=== PATIENT | female | born 1990 | race Caucasian/White ===

== ENCOUNTER → 2020-06-15 08:33 | Outpatient (BNVA) | payer OTHER, SELFPAY | PROVIDERS: PCP Nurse Practitioner Family; Visit Provider Surgery ==

== ENCOUNTER → 2020-06-29 08:13 | Outpatient (BNVA) | payer OTHER, SELFPAY | PROVIDERS: PCP Nurse Practitioner Family; Visit Provider Surgery | DX: E66.01 Morbid (severe) obesity due to excess calories (principal); Z68.43 Body mass index [BMI] 50.0-59.9, adult | CPT/HCPCS: 99212 ==

== ENCOUNTER → 2020-07-13 08:22 | Outpatient (BNVA) | payer OTHER, SELFPAY | PROVIDERS: PCP Nurse Practitioner Family; Visit Provider Dietitian, Registered ==

== ENCOUNTER 2022-10-20 11:33 | Outpatient (REF) | payer MEDICAID, SELFPAY ==
[2022-10-20 14:55] LABS: Alanine Aminotransferase 72 U/L (0-31); Albumin Level 3.8 g/dL (3.5-5.0); Alkaline Phosphatase 73 U/L (39-117); Aspartate Amino Transferase 42 U/L (5-31); Bilirubin Direct 0.3 mg/dL (0.0-0.5); Bilirubin Total 0.8 mg/dL (0.0-1.0); Total Protein 7.5 g/dL (6.5-8.0)
[2022-10-21 04:01] LABS: HBS Num1 0.47 mIU/mL (0-7.99); ~Hepatitis B Surface Antibody NONREACTIVE (Nonreactive)
== END 2022-10-20 11:34 | disposition home or self-care (01) ==
LOC: HO.CHCLDS 11:33
PROVIDERS: Visit Provider Family Medicine
DX: E66.01 Morbid (severe) obesity due to excess calories (principal); R74.01 Elevation of levels of liver transaminase levels
CPT/HCPCS: 36415; 80076; 86706

== ENCOUNTER 2022-11-06 16:05 | Outpatient (REF) | payer MEDICAID, SELFPAY ==
[2022-11-07 03:23] LABS: CT PCR NOT DETECTED (Not Detect.); NG PCR NOT DETECTED (Not Detect.)
[2022-11-07 11:15] LABS: BV Int Neg Control Negative (Negative); BV Int Pos Control Positive (Positive)
== END 2022-11-06 16:06 | disposition home or self-care (01) ==
LOC: HO.CHCLNP 16:05
PROVIDERS: Visit Provider Family Medicine
DX: Z12.72 Encounter for screening for malignant neoplasm of vagina (principal); Z90.711 Acquired absence of uterus with remaining cervical stump
CPT/HCPCS: 0353U; 87480; 87510; 87660; 88142

== ENCOUNTER 2023-05-15 18:10 | Outpatient (REF) | payer MEDICAID, SELFPAY | END 2023-05-15 18:11 | disposition home or self-care (01) | LOC: HO.CHCLNP 18:10 | PROVIDERS: Visit Provider Registered Nurse | DX: J10.1 Influenza due to other identified influenza virus with other respiratory manifestations (principal) | CPT/HCPCS: 0241U; 87070 ==

== ENCOUNTER 2023-05-15 18:25 | Outpatient (REF) | payer MEDICAID, SELFPAY ==
[2023-05-15 19:09] LABS: Influenza A PCR NEGATIVE (Negative); Influenza B PCR POSITIVE (Negative); Resp Syncy Virus RNA Qual PCR NEGATIVE (Negative); SARS COV2 PCR INHOUSE NEGATIVE (Negative)
== END 2023-05-15 18:26 | disposition home or self-care (01) ==
LOC: HO.CHCLNP 18:25
PROVIDERS: Visit Provider Registered Nurse
DX: Z11.52 Encounter for screening for COVID-19 (principal); J10.1 Influenza due to other identified influenza virus with other respiratory manifestations
CPT/HCPCS: 0241U

== ENCOUNTER 2024-03-22 09:26 | Outpatient (REF) | payer MEDICAID, SELFPAY ==
--- OUTSIDE RECORDS SUMMARY | 2024-03-22 10:30 | XMS_ITS | Clinical Summary ---
Author Organization [facility] Address [address] [place] [address] Care Team Providers Care Coin Rolling Machine Operator Name Role Phone Unavailable Primary Care Provider Unavailabl e Source Comments PLEASE NOTE, if this patient is a minor, it may be UNLAWFUL to discuss sensitive information that is contained in these records (such as FAMILY PLANNING, MENTAL HEALTH or SUBSTANCE ABUSE) with the minor patient's parent or other person without the patient's specific authorization.[facility] Immunizations Name Administration Dates Next Due Moderna COVID-19 Vaccine, re d cap blue label, 12+ Primary Series 07/02/2020,06/04/2020 Social History Tobacco Use Types Packs/Day Years Used Date Smoking Tobacco: Never Assessed Social Connections Answer Date Recorded Social Connections and Isolation 0 06/04/2020 Financial Resource Strain Answer Date R ecorded Financial Resource Strain 0 2020 Stress Answer Date Recorded Stress 0 06/04/2020 Physical Activity Answer Date Recorded Physical Activity 0 06/04/2020 Food Insecurity Answer Date Recorded Food 0 06/04/2020 Transportation Needs Answer Date Record ed Transportation 0 06/04/2020 Housing Stability Answer Date Recorded Housing 0 06/04/2020 Safety and Environment Answer Date Cristo rded Safety 0 06/04/2020 Utilities Answer Date Recorded Utilities 0 06/04/2020 Employment Answer Date Recorded Employment 0 06/04/2020 Comments Unknown Sex and Gender Information Value Date Recorded Sex Assigned at Not on file Legal Sex Female 6:59 AM PDT Gender Identity Not on file Sexual Orientation Not on file Plan of Treatment Health Maintenance Due Date Last Done Comments Diabetes Screening 1989 HPV Screening 1989 Hepatitis C Screening 1989 Pap + HPV 1989 Tobacco Screening 1989 HIV Screening 01/05/2004 Relationship Safety Screening/Counseling 01/05/2004 Annual Preventive Care Visit 2007 Hypertension Screening (#1) 2007 Imm-DTaP/Tdap/Td (1 - Tdap) 01/05/2008 Imm-Hepatitis B (1 of 3 - 19 + 3-dose series) 01/05/2008 Cervical Cancer Screening 2010 Pap Smear 2010 Alcohol and Drug Screen 02/09/2023 Depression Annual Screen 02/09/2023 [id number] ( season) 2023 021, 06/04/2020 Imm-Influenza (#1) 2023 Cervical Ablation/Cold-Knife Conization Discontinued Cervical Cryotherapy Discontinued Colposcopy Discontinued Endometrial Biopsy Discontinued Excision/Leep Discontinued HPV Genotyping Discontinued Vaginal Pap Discontinued Vulvoscopy Discontinued Insurance [employer] Member Subscriber Plan / Payer (Ef fective 2019-Present) Name:Dilcia Vergara Relation to Subscriber:Self Name:Dilcia Vergara Payer ID:[id number] Group ID:Not on file Type:Medicaid Address: [facility] [address] [place] [address]
--- OUTSIDE RECORDS SUMMARY | 2024-03-22 10:30 | XMS_ITS | Clinical Summary ---
Author Organization [employer] Address [address] [facility] [address] [place] [address] Care Team Providers Care Insole Tacker Name Role Phone Alisha Miller MD Primary Care Provider [phone] Allergies Active Allergy Reactions Criticality Noted Date Comments Penicillins Itching Low 03/27/2022 Medications sertraline (Zoloft) 50 MG tablet Take 50 mg by mouth 2 times daily. Active Blood Pressure kitIndications:El evated blood pressure reading 1 kit in the morning. 1 kit 3 Active simethicone (Mylicon) 80 MG chewable tablet TAKE 1 TABLET BY MOUTH EVERY 6 HOURS NEEDED FOR FLATULENCE FOR UP TO 30 DAYS. 4 Active ursodiol (Actigall) 300 MG capsule TAKE 2 CAPSULES BY MOUTH DAILY FOR 180 DAYS. 4 Active albuterol 108 (90 Base) MCG/ACT inhalerIndication s:Influenza B,Moderate persistent asthma without complication Inhale 2 puffs every 4 (four) hours if needed for wheezing. 18 g 11 4 05/15/19 25 Active Acetaminophen Extra Strength 500 MG tabletIndications :Influenza B TAKE 1-2 TABLETS BY MOUTH EVERY 8 HOURS as needed for pain or fever 100 tablet 3 4 Active omeprazole (PriLOSEC) [address] capsule TAKE 1 CAPSULE BY MOUTH BEFORE BREAKFAST 90 capsule 4 Active polyethylene glycol, PEG, 3350 (MiraLax) 17 GM/SCOOP powderIndications :Constipation, unspecified constipation type Take 17 g by mouth Once per day. 527 g 2 4 Active senna-docusate sodium (Senokot-S) 8.6-50 MG tabletIndications :Constipation, unspecified constipation type Take 2 tablets by mouth Once per day. 60 tablet 11 4 Active pramoxine-hydroco rtisone, perianal, (Analpram HC) 2.5-1 % cream Insert into the rectum if needed in the morning and at bedtime for hemorrhoids. 30 g 4 Active Active Problems Problem Noted Date Diagnosed Date Constipation 01/25/2024 Assessment & Plan (01/25/2024 3:54 PM EST): Prescribing Miralax, Senokot, and Milk of Magnesia for Sx. Follow up in one month via telehealth. Grade I hemorrhoids 12/28/2023 Assessment & Plan (12/28/2023 4:06 PM EST): Hb is normal, not a significant bleeding. Advised to avoid constipation, increase water intake. Advised to buy OTC sitz baths to do tid or prn after BM Advised to use IR Hydrocortisone cream tid or prn after BM FU with PCP in 3-4w Advised to use non alcohol wipes prn rectal bleeding and apply pressure for at least 10 min. Can use OTC zinc oxide cream on perineal area to prevent irritation from rectal bleeding. Exercise counseling 10/20/2022 Moderate persistent asthma without complication 07/21/2022 Assessment & Plan (07/21/2022 1:31 PM EDT): Patient with recent asthma exacerbation. Will send Advair 150 and inhaler and start on x5 day trial of prednisone. Transaminitis 06/06/2022 Assessment & Plan (10/20/2022 11:17 AM EDT): Patient will be send for labs for further evaluation. Assessment & Plan (06/06/2022 3:41 PM EDT): Pending US, will recheck labs in 3 months if persistent will refer to GI. Initial w/u benign. Hypertension 05/02/2022 Assessment & Plan (06/06/2022 3:41 PM EDT): Controlled. Continue current dose. Assessment & Plan (05/28/2022 2:40 PM EDT): Uncontrolled. Adjusted regimen. F/up in 1 month. Target < 140/90 mmHg Palpitations 04/17/2022 Peripheral neuropathy 04/09/2022 Assessment & Plan (10/20/2022 5:01 PM EDT): Ddx carpel tunnel, pending EMG, unclear why hand surgery referral was not placed previously, sent. Reorder OT. Assessment & Plan (04/09/2022 5:23 PM EST): Bilateral hand pain especially with grasping and at night, ddx carpel tunnel, send for EMG and hand surgeon Depression 03/27/2022 Anxiety 03/27/2022 Morbid obesity 03/27/2022 Assessment & Plan (04/16/2023 10:23 AM EST): Sp gastric sleeve. Doing well. Discussed postop recommendations. Cont f/up with bariatric center. Discussed calorie deficit, recommended reduction of 20-30% of maintenance calories. Recommended to decrease soda and sugary beverage consumption. Recommended at least 20 g per meal of protein to assist with satiety. Recommended at least 150 min/week of moderate intensity exercise. Assessment & Plan (11/06/2022 3:32 PM EDT): Discussed calorie deficit, recommended reduction of 20-30% of maintenance calories; emd special education teacher referral offered. Recommended to decrease soda and sugary beverage consumption. Recommended at least 20 g per meal of protein to assist with satiety. Recommended at least 150 min/week of moderate intensity exercise. Assessment & Plan (10/20/2022 5:00 PM EDT): -Discussed calorie deficit, recommended reduction of 20-30% of maintenance calories -Recommended to decrease soda and sugary beverage consumption. Recommended at least 20 g per meal of protein to assist with satiety. Recommended at least 150 min/week of moderate intensity exercise. She has pending bariatric surgery, she is not taking phen/topamax Assessment & Plan (07/21/2022 1:36 PM EDT): Patient gained 3 lbs since last visit. Denies implementation of diet modifications. Will refer to emd special education teacher. At this point will increase phentermine to 37.5 mg and Topamax to 100 mg nighty. Assessment & Plan (06/06/2022 3:41 PM EDT): Patient will benefit of pharmacotherapy, reports she has tried to change lifestyle but has gained weight. Will start phentermine, patient already on topamax for SANCHEZ ppx. Phentermine/topamax: 8/50 mg. Discussed side effects-> tachycardia, HTN, teratogenic, cognitive dysfuction, metabolic acidosis, constipation, dysgeusia. Denies hx of , hyperthyroidism, MAOI use or glaucoma. Denies hx of kidney stones. F/u in 1 month to assess responsive and side effects Assessment & Plan (04/09/2022 5:25 PM EST): Discussed calorie deficit, recommended reduction of 20-30% of maintenance calories; following w/ bariatric medicine. Recommended to decrease soda and sugary beverage consumption. Recommended at least 20 g per meal of protein to assist with satiety. Recommended at least 150 min/week of moderate intensity exercise. Resolved Problems Problem Noted Date Diagnosed Date Resolved Date Elevated blood pressure reading 04/09/2022 05/16/2023 Assessment & Plan (04/09/2022 5:25 PM EST): Elevated blood pressure w/o dx of HTN. Recommended monitoring and will f/up Encounters Date Type Department Care Team Description 03/21/2024 5:40 PM EST Office Visit [facility] [address] [place], [place] [phone] Abilio Iraheta MD Other fatigue (Primary Dx) 03/21/2024 Travel 03/01/2024 Telephone [facility] [address] [place], [place] [phone] Alisha Miller MD PCP Change 02/05/2024 2:20 PM EST Office Visit [facility] [address] [place] [phone] Brisa Bray MD Viral upper respiratory tract infection (Primary Dx); Sore throat 01/25/2024 3:30 PM EST Office Visit [facility] [address] [place] [address] Alisha Miller MD Constipation, unspecified constipation type (Primary Dx); Encounter for immunization 01/25/2024 Travel 12/29/2023 Refill [facility] [address] [place] [address] Alisha Miller MD 12/28/2023 3:40 PM EST Office Visit [facility] [address] [place] [phone] Melba Bellamy MD Grade I hemorrhoids (Primary Dx) 12/28/2023 Telephone [facility] [address] [place] [phone] Alisha Miller MD Nurse Triage from Last 3 Months Immunizations Name Administration Dates Next Due Influenza injectable quadrivalent preservative f ree 10/20/2022 Influenza, seasonal, injectable, preservative fr ee 01/25/2024 Pneumococcal Conjugate PCV 20 10/20/2022 Tdap 10/20/2022 Social History Tobacco Use Types Packs/Day Years Used Date Smoking Tobacco: Never Passive Smoke Exposure: Never Smokeless Tobacco: Never Tobacco Cessation:Counseling Given: Not Answered Alcohol Use Standard Drinks/Week Comments Never 0 (1 standard drink = 0.6 oz pur e alcohol) Depression Answer Date Recorded Patient Health Questionnaire-9 Score 10/20/2022 Housing Stability Answer Date Recorded What is your housing situation today? I have [place] 12/03/[address] you li ve. Do you have problems with any of the following? None of the above 12/03/2022 Food Insecurity Answer Date Recorded Within the past 12 months, y ou worried that your food would run out before you got money to buy more: Never True 12/03/2022 Within the past 12 months,th e food you bought just didn't last and you didn't have enough money to get more: Never True Transportation Answer Date Recorded In the past 12 months, has l ack of transportation kept you from medical appts, meetings, work or from getting things needed for daily living? No 12/03/2022 Utilities Answer Date Recorded In the past 12 months, has t he electric, gas, oil or water company threatened to shut off services in your home? No 12/03/2022 Depression Answer Date Recorded Patient Health Questionnaire-2 Score 4 10/20/2022 Comments Unknown Sex and Gender Information Value Date Recorded Sex Assigned at Female 03/04/2022 1:14 PM EST Legal Sex Female 1:11 PM EST Gender Identity Female 03/04/2022 1:14 PM EST Sexual Orientation Straight 03/27/2022 12 :41 PM EST Last Filed Vital Signs Vital Sign Reading Time Taken Comments Blood Pressure 118/72 03/21/2024 5:39 PM EST Pulse 72 03/21/2024 5:39 PM EST Temperature 36.8 ??C (98.2 ??F) 03/21/2024 5:39 PM ES T Respiratory Rate 19 03/21/2024 5:39 PM EST Oxygen Saturation 98% 02/05/2024 1:49 PM EST Inhaled Oxygen Concentration - - Weight 116 kg (256 lb 6.4 oz) 03/21/2024 5:39 PM EST Height 167.6 cm (5' 6 ) 02/05/2024 1:49 PM EST Body Mass Index 41.38 02/05/2024 1:49 PM EST Plan of Treatment Health Maintenance Due Date Last Done Comments Alcohol/Substance Use Screening 2001 Family Planning (PISQ) 01/05/2004 Hepatitis B Vaccines (1 of 3 - 19+ 3-dose series) 01/05/2008 HPV/Cotest 2019 SDOH Screening 04/18/2023 04/17/2022 Depression Monitoring (PHQ-9) 04/20/2023, 10/20/2022 COVID-19 Vaccine (2023-2 5 season) 2023 Depression Screening 10/21/2023 10/20/2022, 10/20/2022 Tobacco Screening 02/04/2025 02/05/2024 Cervical Cancer Screening 11/06/2025 Pap Smear 11/06/2025 11/06/2022 Lipid Panel 04/07/2027 04/07/2022 DTaP/Tdap/Td Vaccines (2 - T d or Tdap) 10/20/2032 10/20/2022 Zoster Vaccines (1 of 2) 2039 RSV Patients and Patients Aged 60 years or older (1 - 1-dose 75+ series) 01/05/2064 HIV Screening Completed 05/29/2022 Hepatitis C Screening Completed 05/29/2022 Pneumococcal Vaccine: Pediatrics (0 to 5 Years) and At-Risk Patients (6 to 49) Years) Completed 10/20/2022 Influenza Vaccine Completed 01/25/2024, 10/20/2022 HIB Vaccines Aged Out No longer eligi ble based on patient's age to complete this topic HPV Vaccines Aged Out No longer eligi ble based on patient's age to complete this topic Hepatitis A Vaccines Aged Out No long er eligible based on patient's age to complete this topic IPV Vaccines Aged Out No longer eligi ble based on patient's age to complete this topic Meningococcal Vaccine Aged Out No bradley marbella eligible based on patient's age to complete this topic RSV under 20 months Aged Out No longe r eligible based on patient's age to complete this topic Rotavirus Vaccines Aged Out No longer eligible based on patient's age to complete this topic Procedures Procedure Name Priority Date/Time Associated Diagnosis Comments POC PÉREZ ID NOW STREP A Routine 02/05/2024 2:01 PM EST Sore throat POCT INFLUENZA A (ID NOW RAPID MOLECULAR) Routine 02/05/2024 2:00 PM EST Sore throat POCT COVID-19 AG PÉREZ ID NOW Routine 02/05/2024 1:59 PM EST Sore throat POCT INFLUENZA B (ID NOW RAPID MOLECULAR) Routine 02/05/2024 1:59 PM EST Sore throat POCT HEMOGLOBIN Routine 12/28/2023 3:50 PM EST Grade I hemorrhoids PAP SMEAR Routine 11/06/2022 3:20 PM EDT Screening for malignant neoplasm of vagina after partial hysterectomy HEPATITIS C AB W/REFL TO HCV RNA, QN, PCR Routine 05/29/2022 11:23 AM EDT Transaminitis HIV 1/2 ANTIGEN/ANTIBODY, FOURTH GENERATION W/RFL Routine 05/29/2022 11:23 AM EDT Transaminitis LIPID PANEL, STANDARD Routine 04/07/2022 11:14 AM EST from Last 3 Months or Most Recently Relevant to Health Maintenance Results * POCT Rapid Strep A PÉREZ ID NOW (02/05/2024 2:01 PM EST) [facility] Rapid Strep A Screen Negative Negative, None Detected QC Media Lot # [id number] Lot# Expiration Date Swab 02/05/2024 2:01 PM EST Brisa Bray MD POINT OF CARE TEST ENTER/EDIT ORDERABLES Final Result * POCT Rapid Influenza A PÉREZ ID NOW (02/05/2024 2:00 PM EST) [facility] Influenza A Negative Negative, Indeterminate [facility] QC Media Lot # [id number] [facility] Lot# Expiration Date [facility] Swab 02/05/2024 2:00 PM EST Brisa Bray MD POINT OF CARE TEST ENTER/EDIT ORDERABLES Final Result [facility] [address] [place] [phone] * POCT Rapid Influenza B PÉREZ ID NOW (02/05/2024 1:59 PM EST) [facility] Influenza B Negative Negative, Indeterminate [facility] QC Media Lot # [id number] [facility] Lot# Expiration Date [facility] Swab 02/05/2024 1:59 PM EST Brisa Bray MD POINT OF CARE TEST ENTER/EDIT ORDERABLES Final Result [facility] [address] [place] [phone] * POCT Rapid Covid-19 PÉREZ ID NOW (02/05/2024 1:59 PM EST) Pathologist [facility] Coronavirus Antigen PCR Negative Negative, Indeterminate, None Detected, Invalid, Specimen unsatisfactory for evaluation, Weakly Positive QC Media Lot # [id number] Lot# Expiration Date [id number] Swab 02/05/2024 1:59 PM EST Brisa Bray MD POINT OF CARE TEST ENTER/EDIT ORDERABLES Final Result * POCT hemoglobin docked device (12/28/2023 3:50 PM EST) Pathologist [facility] Hemoglobin 14.3 12.0 - 15.0 Blood 12/28/2023 3:50 PM EST Melba Bellamy MD POINT OF CARE TEST ENTER /EDIT ORDERABLES Final Result * Pap Smear (11/06/2022 3:20 PM EDT) Swab 11/06/2022 3:20 PM EDT 11/07/2022 10:10 AM EDT Narrative [facility] - 11/14/2022 11:16 AM EDT ----- ------- Name: Dilcia Sutton ? Age/Sex: 32/F ? : 1990 Unit#: [id number] ?? Attend Dr: Alisha Miller MD ?Re11/06/22 ?Status: DEP REF ? Location: [facility] ? Disch: ? ----- ------- SPEC : [id number] ?RECD: 11/07/22-1010 ? STATUS: ??SOUT ? REQ NUM: [id number] ? SHEFALI: 11/06/22-1520 ? SUBM DR: Alisha Miller MD ? ENTERED: ??11/07/22-1053 ?SP TYPE: Pap Smr ?OTHR DR: ? ORDERED: ??Pap Smear ? Interpretation ?? Satisfactory for evaluation. ?? Negative for intraepithelial lesion or malignancy. ?Clinical Information LMP: Unknown date Previous PAP test: Unknown date/findings Other history: Hysterectomy, screening for malignant neoplasm of vagina after partial hysterectomy ? Material Received ?? ThinPrep-Vaginal ----- ------- Signed (signature on file) SHABBIR Chaudhry ([facility]) 11/14/22 1116 ? ----- ------- ? END OF REPORT ? us Alisha Miller MD LAB CYTOLOGY ORDERABLES Final Result [facility] [address] [place] [phone] * Hepatitis C Antibody with Reflex to HCV, RNA, Quantitative, Real-Time PCR (05/29/2022 11:23 AM EDT) Hepatitis C Antibody NON-REACT SIMÓN NON-REACT SIMÓN [facility] [place] Index 0.19 <1.00 [facility] [place] [facility] Comment: HCV antibody was non-reactive. There is no laboratory evidence of HCV infection. In most cases, no further action is required. However, if recent HCV exposure is suspected, a test for HCV RNA (test code 54929) is suggested. For additional information please refer to http://MegaBits.Boticca/faq/JRQ10x2 (This link is being provided for informational/ educational purposes only.) Blood Venous blood specimen / Unknown 05/29/2022 11:23 AM EDT 05/29/2022 11:24 AM EDT Narrative [facility] - 05/29/2022 8:02 PM EDT AN UPDATE OR CORRECTION HAS BEEN MADE TO NAME us Alisha Miller MD LAB BLOOD ORDERABLES Final Re sult [facility] [address], [place] [address] [facility] [address] [place] [address] * HIV-1/2 Antigen and Antibodies, Fourth Generation, with Reflexes (05/29/2022 11:23 AM EDT) [facility] HIV Antigen/Antibody, 4th Generation NON-REAC TIVE NON-REAC TIVE [facility] Comment: HIV-1 antigen and HIV-1/HIV-2 antibodies were not detected. There is no laboratory evidence of HIV infection. PLEASE NOTE: This information has been disclosed to you from records whose confidentiality may be protected by state law. ??If your state requires such protection, then the state law prohibits you from making any further disclosure of the information without the specific written consent of the person to whom it pertains, or as otherwise permitted by law. A general authorization for the release of medical or other information is NOT sufficient for this purpose. ?? For additional information please refer to http://MegaBits.Boticca/faq/SBI829 (This link is being provided for informational/ educational purposes only.) The performance of this assay has not been clinically validated in patients less than 2 years old. Blood Venous blood specimen / Unknown 05/29/2022 11:23 AM EDT 05/29/2022 11:24 AM EDT Narrative [facility] - 05/29/2022 8:02 PM EDT AN UPDATE OR CORRECTION HAS BEEN MADE TO NAME Alisha Miller MD LAB BLOOD ORDERABLES Final Re sult Performing Organization Address [facility] de Phone Number [facility] [address] [phone] [facility] [address] [place] [address] * Lipid Panel, Standard (04/07/2022 11:14 AM EST) Cholesterol, Total 158 <200 mg/dL [facility] [place] [facility] HDL Cholesterol 56 > OR = 50 mg/dL [facility] [place] [facility] Triglycerides 98 <150 mg/dL [facility] [place] [facility] LDL Cholesterol 83 mg/dL (calc) [facility] [place] [facility] Comment: Reference range: <100 Desirable range <100 mg/dL for primary prevention; ?? <70 mg/dL for patients with CHD or diabetic patients with > or = 2 CHD risk factors. LDL-C is now calculated using the Rich-Davis calculation, which is a validated novel method providing better accuracy than the Friedewald equation in the estimation of LDL-C. Rich SS et al. ENOCH. 2013;310(19): 5387-2750 (http://education.ForwardMetrics/faq/YAQ948) Chol/HDLC Ratio 2.8 <5.0 (calc) [facility] [place] [facility] Non-HDL Cholesterol 102 <130 mg/dL (calc) [facility] [place] [facility] Comment: For patients with diabetes plus 1 major ASCVD risk factor, treating to a non-HDL-C goal of <100 mg/dL (LDL-C of <70 mg/dL) is considered a therapeutic option. 04/07/2022 11:1 4 AM EST 04/07/2022 11:16 AM EST Narrative [facility] - 04/11/2022 12:46 AM EST FASTING:YES AN UPDATE OR CORRECTION HAS BEEN MADE TO NAME FASTING: YES Alisha Miller MD LAB BLOOD ORDERABLES Final Re sult Performing Organization Address [facility] Co de Phone Number [facility] [address], [facility] [place] [address] [facility] [address] [facility], ([address]) [place] [address] from Last 3 Months or Most Recently Relevant to Health Maintenance [place] [address] [place] [address] C3 Care Teams Insole Tacker Relationship Specialty Start Date End Date Alisha Miller MD [address] [place] [address] PCP - General Family Medicine 03/27/22 Pedro Luis Montiel Gas Pipe LayerTransport Coordinator 10/23/22
--- OUTSIDE RECORDS SUMMARY | 2024-03-22 10:30 | XMS_ITS | Encounter Summary ---
Author Organization [employer] Address [address] [place] [address] Care Team Providers Care Assistant Paralegal Name Role Phone Alisha Miller MD Primary Care Provider [phone] Encounter Details Date Type Department Care Team ([facility] st Contact Info) Description 03/21/2024 5:40 PM EST Office Visit [facility] [address] [place] [address] Abilio Iraheta MD [address] [place] [address] Other fatigue (Primary Dx) Social History Tobacco Use Types Packs/Day Years Used Date Smoking Tobacco: Never Passive Smoke Exposure: Never Smokeless Tobacco: Never Alcohol Use Standard Drinks/Week Comments Never 0 (1 standard drink = 0.6 oz pur e alcohol) Depression Answer Date Recorded Patient Health Questionnaire-9 Score 20 10/20/2022 Housing Stability Answer Date Recorded What is your housing situation today? I have hamilton brownlee 12/03/[address] you [...] Orientation Straight 03/27/2022 12 :41 PM EST documented as of this encounter Last Filed Vital Signs Vital Sign Reading Time Taken Comments Blood Pressure 118/72 03/21/2024 5:39 PM EST Pulse 72 03/21/2024 5:39 PM EST Temperature 36.8 ??C (98.2 ??F) 03/21/2024 5:39 PM ES T Respiratory Rate 19 03/21/2024 5:39 PM EST Oxygen Saturation - - Inhaled Oxygen Concentration - - Weight 116 kg (256 lb 6.4 oz) 03/21/2024 5:39 P M EST Height - - Body Mass Index 41.38 02/05/2024 1:49 PM EST documented in this encounter Progress Notes * Abilio Lee MD - 03/21/2024 5:40 PM EST Subjective Patient ID: Dilcia Gallo is a 34 y.o. female who presents for No chief complaint on file.. Fatigue This is a chronic problem. Associated symptoms include arthralgias, fatigue and myalgias. Pertinentnegatives include no coughing or rash. Review of Systems Constitutional: Positive for fatigue. Respiratory: Negative for cough. Musculoskeletal: Positive for arthralgias and myalgias. Skin: Negative for rash. Objective Physical Exam Constitutional: Appearance: Normal appearance. Cardiovascular: Rate and Rhythm: Normal rate. Heart sounds: No murmur heard. Pulmonary: Effort: Pulmonary effort is normal. No respiratory distress. Breath sounds: No stridor. No wheezing or rhonchi. Abdominal: General: Abdomen is flat. There is no distension. Tenderness: There is no abdominal tenderness. There is no rebound. Musculoskeletal: General: No swelling, tenderness, deformity or signs of injury. Normal range of motion. Neurological: General: No focal deficit present. Mental Status: She is alert and oriented to person, place, and time. Psychiatric: Mood and Affect: Mood normal. Behavior: Behavior normal. Assessment/Plan Problem List Items Addressed This Visit None Visit Diagnoses Other fatigue - Primary Patient with chronic fatigue, multiple tender points, refers having joint swelling, unremarkable examination except for tender points, will order blood test to evaluate for autoimmune causes. Relevant Orders Comprehensive Metabolic Panel Hemoglobin A1c OBEY Screen,IFA, with Reflex to Titer and Pattern Cyclic Citrullinated Peptide (CCP) Antibody (IgG) C-reactive Protein Sed Rate by Nena Chase documented in this encounter Plan of Treatment Scheduled Orders Name Type Priority Associated Diagnoses Orde r Schedule Comprehensive Metabolic Panel Lab Routine Other fatigue Expected: 03/21/2024 (Approximate), Expires: 03/21/2025 Hemoglobin A1c Lab Routine Other fatigue Expected: 03/21/2024 (Approximate), Expires: 03/21/2025 OBEY Screen,IFA, with Reflex to Titer and Pattern Lab Routine Other fatigue Expected: 03/21/2024 (Approximate), Expires: 03/21/2025 Cyclic Citrullinated Peptide (CCP) Antibody (IgG) Lab Routine Other fatigue Expected: 03/21/2024 (Approximate), Expires: 03/21/2025 C-reactive Protein Lab Routine Other fatigue Expected: 03/21/2024 (Approximate), Expires: 03/21/2025 Sed Rate by Modified Westergren Lab Routine Other fatigue Expected: 03/21/2024, Expires: 03/21/2025 documented as of this encounter Visit Diagnoses Diagnosis Other fatigue- Primary documented in this encounter Additional Health Concerns Assessment Noted Time PHQ-9 Depression Total Score: 20 023 10:55 AM EDT documented as of this encounter Care Teams Assistant Paralegal Relationship Specialty Start Date End Date Alisha Mliler MD [address] [place] [id number] PCP - General Family Medicine 03/27/22 Pedro Luis Montiel Php Web DeveloperMeterman 10/23/22 documented as of this encounter
--- OUTSIDE RECORDS SUMMARY | 2024-03-22 10:30 | XMS_ITS | Clinical Summary ---
Author Organization [facility] [employer] [facility] Address [address] [place] [address] Care Team Providers Care Rotary Lithographic Press Operator Name Role Phone Alisha Miller MD Primary Care Provider [phone] Allergies Active Allergy Reactions Criticality Noted Date Comments Penicillin G Itching,Swelling 02/19/2018 Medications sertraline HCl (SERTRALINE ORAL) Take by mouth. Active trazodone HCl (TRAZODONE ORAL) Take by mouth. Active wheat dextrin (Benefiber Clear SF, dextrin,) 3 gram/3.5 gram powder in packet Take 4 g by mouth daily. 03/25/2023 Active Active Problems Problem Noted Date Diagnosed Date Class 3 severe obesity due t o excess calories with body mass index (BMI) of 50.0 to 59.9 in adult 02/08/2024 Surgical History Surgery Date Site/Laterality Comments CHOLECYSTECTOMY PROCEDURE: HI CHOLECYSTECTOMY APPENDECTOMY PROCEDURE: HISTORICAL APPENDECTOMY TUBAL LIGATION PROCEDURE: HISTORICAL TUBAL LIGATION SECTION PROCEDURE: HISTORICAL DELIVERY Medical History Medical History Date Comments Thyroid disease DX:Thyroid disea se Family History Medical History Relation Name Comments Diabetes Father Other: Other Father Hypertension Mother Thyroid disease Mother Relation Name Status Comments Father Alive Mother Alive Social History Tobacco Use Types Packs/Day Years Used Date Smoking Tobacco: Never Smokeless Tobacco: Never Alcohol Use Standard Drinks/Week Comments Yes 0 (1 standard drink = 0.6 oz pur e alcohol) Comments Unknown Sex and Gender Information Value Date Recorded Sex Assigned at Female 05/15/2023 7:04 PM EDT Legal Sex Female 6:51 PM EST Gender Identity Female 05/15/2023 7:04 PM EDT Sexual Orientation Straight 05/15/2023 7: 04 PM EDT Obstetrics History Last Filed Vital Signs Vital Sign Reading Time Taken Comments Blood Pressure 131/83 04/16/2023 8:54 AM EST Pulse 97 04/16/2023 8:54 AM EST Temperature - - Respiratory Rate - - Oxygen Saturation - - Inhaled Oxygen Concentration - - Weight 161 kg (356 lb) 05/14/2023 12:49 PM EDT Height 167.6 cm (5' 6 ) 04/16/2023 8:54 AM EST Body Mass Index 57.46 04/16/2023 8:54 AM EST Plan of Treatment Upcoming Encounters Date Type Department Care Team (Late st Contact Info) Description 04/12/2024 10:30 AM EST Office Visit Orthopedic Surgery - [place] [address] [facility] [address] [place] [phone] Emilee Ellison MD [address] [facility] [address] [place] [phone] 05/10/2024 1:15 PM EDT Office Visit Bariatric Surgery - [place] [address] [facility] [address] [place] [phone] Georgia Fairchild MD 175 [facility] [address] [place], [place] [phone] Health Maintenance Due Date Last Done Comments DTaP,Tdap,and Td Vaccines (1 - Tdap) 01/05/1996 Hepatitis B Vaccines (1 of 3 - 19+ 3-dose series) 01/05/2008 Cervical Cancer Screening: P ap Smear 2010 Depression Screening 01/11/2022 HIV Screening 01/11/2022 Hepatitis C Screening 01/11/2022 Social Influencers of Health Screening 01/11/2022 COVID-19 Vaccine (1 - 2023-2 5 season) 2023 Influenza Vaccine (#1) 2023 Cholesterol Screening (Lipid Panel) 10/30/2027 10/29/2022 HIB Vaccines Aged Out No longer eligi [...] on patient's age to complete this topic MMR Vaccines Aged Out No longer eligi ble based on patient's age to complete this topic Meningococcal ACWY Vaccine Aged Out N o longer eligible based on patient's age to complete this topic Meningococcal B Vacine Aged Out No lo nger eligible based on patient's age to complete this topic Pneumococcal Vaccine: Pediat rics (0 to 5 Years) and At-Risk Patients (6 to 64 Years) Aged Out No longer eligi ble based on patient's age to complete this topic RSV Immunization Patients Un bianka 20 months Aged Out No longer eligible b ased on patient's age to complete this topic Varicella Vaccines Aged Out No longer eligible based on patient's age to complete this topic Procedures Procedure Name Priority Date/Time Associated Diagnosis Comments LIPID PANEL Routine 10/29/2022 from Last 3 Months or Most Recently Relevant to Health Maintenance Results * Lipid panel (10/29/2022) LDL/HDL Ratio 3 0 - 4 Triglycerides 96 0 - 150 mg/dL Cholesterol 148 0 - 200 mg/dL HDL 47 >=40 mg/dL LDL Cholesterol 82 0 - 100 mg/dL Blood Venous blood specimen / Unknown [facility] Provider LAB BLOOD ORDERABLES Anne l Result from Last 3 Months or Most Recently Relevant to Health Maintenance Insurance MEDICA[place] Care Teams Rotary Lithographic Press Operator Relationship Specialty Start Date End Date Alisha Miller MD [address] [place] [phone] PCP - General 03/05/22
--- OUTSIDE RECORDS SUMMARY | 2024-03-22 10:30 | XMS_ITS | Encounter Summary ---
Author Organization [employer] Address [address] [place] [address] Care Team Providers Care Mergers And Acquisitions Banker Name Role Phone Alisha Miller MD Primary Care Provider [phone] Reason for Visit * Reason Onset Date Comments PCP Change 03/01/2024 Encounter Details Date Type Department Care Team ([facility] st Contact Info) Description 03/01/2024 Telephone [facility] [address] [place], [place] [phone] Alisha Miller MD [address] [place] [address] PCP Change Social History Tobacco Use Types Packs/Day Years [...] PM EST documented as of this encounter Miscellaneous Notes * Telephone Encounter - Mau Hartman - 03/21/2024 9:42 AM EST Tc from pt returning call. * Telephone Encounter - Odalis Flores RN - 03/04/2024 2:37 PM EST TC to pt- Sultana was master control technician- no answer. LM to RC. * Telephone Encounter - Kathy Roman - 03/01/2024 11:42 AM EST Tc from pt requesting to switch providers. Pt expressed not satisfied with care. Pt stated she has been requesting further testing regarding symptoms discussed in the past 2 years Contact pt at [phone] (german) documented in this encounter Plan of Treatment Not on file documented as of this encounter Visit Diagnoses Not on filedocumented in this encounter Additional Health Concerns Assessment Noted Time PHQ-9 Depression Total Score: 20 023 10:55 AM EDT documented as of this encounter Care Teams Mergers And Acquisitions Banker Relationship Specialty Start Date End Date Alisha Miller MD [address] [place] [address] PCP - General Family Medicine 03/27/22 Pedro Luis Montiel Casino InvestigatorDirector Of Family Service Center 10/23/22 documented as of this encounter
--- OUTSIDE RECORDS SUMMARY | 2024-03-22 10:30 | XMS_ITS | Encounter Summary ---
Author Organization [employer] Address [address] [facility] [address] [place] [address] Care Team Providers Care Clinical Nursing Coordinator Name Role Phone Alisha Miller MD Primary Care Provider [phone] Encounter Details Date Type Department Care Team (Latest Contact Info) Description 03/21/2024 Travel Social History Tobacco Use Types Packs/Day Years [...] PM EST documented as of this encounter Plan of Treatment Not on file documented as of this encounter Visit Diagnoses Not on filedocumented in this encounter Additional Health Concerns Assessment Noted Time PHQ-9 Depression Total Score: 20 023 10:55 AM EDT documented as of this encounter Care Teams Clinical Nursing Coordinator Relationship Specialty Start Date End Date Alisha Miller MD [address] [place] [address] PCP - General Family Medicine 03/27/22 Pedro Luis Montiel Payroll Human Resources AssistantConcaver 10/23/22 documented as of this encounter
[2024-03-22 11:20] LABS: Alanine Aminotransferase 13 U/L (0-31); Albumin Level 3.5 g/dL (3.5-5.0); Alkaline Phosphatase 86 U/L (39-117); Anion Gap 7 (12-20); Aspartate Amino Transferase 19 U/L (5-31); Bilirubin Total 0.8 mg/dL (0.0-1.0); Blood Urea Nitrogen 13 mg/dL (9-16); C Reactive Protein 0.12 mg/dL (< or = 0.50); Calcium 8.7 mg/dL (8.4-10.2); Carbon Dioxide 27 mmol/L (22-29); Chloride 111 mmol/L (96-108); Estimated Glomerular Filt Rate > 60; Glucose Random 90 mg/dL (60-115); Potassium 3.7 mmol/L (3.3-5.1); Sodium 141 mmol/L (135-145)
[2024-03-22 11:32] LABS: Estimated Average Glucose 97 mg/dL; Hemoglobin A1C 110.3411 umol/L; Total Hemoglobin (HGBA1C) 3570.1706 umol/L
[2024-03-22 11:55] LABS: Erythrocyte Sedimentation Rate 7 MM/HR (0-20)
[2024-03-24 19:28] LABS: Cyclic Citrullinated Peptide <16 UNITS
[2024-03-27 08:49] LABS: Anti Nuclear Antibody Screen NEGATIVE (NEGATIVE)
== END 2024-03-22 09:27 | disposition home or self-care (01) ==
LOC: HO.HHCL 09:26
PROVIDERS: Visit Provider Internal Medicine
DX: R53.83 Other fatigue (principal)
CPT/HCPCS: 36415; 80053; 83036; 85652; 86038; 86140; 86200

== ENCOUNTER 2024-10-18 12:13 | Outpatient (REF) | payer MEDICAID, SELFPAY ==
--- OUTSIDE RECORDS SUMMARY | 2024-10-18 16:00 | XMS_ITS | Encounter Summary ---
Author Organization [employer] Address [address] [facility] [address] [place] [address] Care Team Providers Care Trouble Shooting Mechanic Name Role Phone Alisha Miller MD Primary Care Provider [phone] Reason for Visit * Reason Comments Abdominal Pain Difficulty Urinating Encounter Details Date Type Department Care Team ([facility] st Contact Info) Description 10/18/2024 4:00 PM EDT Office Visit [facility] [address] [place] [phone] Betzy Durham MD [address] [place] [address] Gastritis without bleeding, unspecified chronicity, unspecified gastritis type (Primary Dx); Dysuria Social History Tobacco Use Types Packs/Day Years Used Date Smoking Tobacco: Never Passive Smoke Exposure: Never Smokeless Tobacco: Never Alcohol Use Standard Drinks/Week Comments Never 0 (1 standard drink = 0.6 oz pur e alcohol) Depression Answer Date Recorded Patient Health Questionnaire-9 Score 20 10/20/2022 Housing Stability Answer Date Recorded What is your housing situation today? I have hamilton brownlee 07/01/[address] you li ve. Do you have problems with any of the following? None of the above 07/01/2024 Food Insecurity Answer Date Recorded Within the past 12 months, y ou worried that your food would run out before you got money to buy more: Never True 07/01/2024 Within the past 12 months,th e food you bought just didn't last and you didn't have enough money to get more: Never True Transportation Answer Date Recorded In the past 12 months, has l ack of transportation kept you from medical appts, meetings, work or from getting things needed for daily living? No 07/01/2024 Utilities Answer Date Recorded In the past 12 months, has t he electric, gas, oil or water company threatened to shut off services in your home? No 07/01/2024 Depression Answer Date Recorded Patient Health Questionnaire-2 Score 4 10/20/2022 Internet Access Answer Date Recorded Internet Access Q1 Yes 07/01/2024 Internet Access Q2 Not on file 07/01/2024 Comments Unknown Sex and Gender Information Value Date Recorded Sex Assigned at Female 03/04/2022 1:14 PM EST Legal Sex Female 1:11 PM EST Gender Identity Female 03/04/2022 1:14 PM EST Sexual Orientation Straight 03/27/2022 12 :41 PM EST documented as of this encounter Last Filed Vital Signs Vital Sign Reading Time Taken Comments Blood Pressure 116/71 10/18/2024 3:08 PM EDT Pulse 68 10/18/2024 3:08 PM EDT Temperature 37 C (98.6 F) 10/18/2024 3:08 PM EDT Respiratory Rate 20 10/18/2024 3:08 PM EDT Oxygen Saturation 100% 10/18/2024 3:08 PM EDT Inhaled Oxygen Concentration - - Weight 108 kg (237 lb) 10/18/2024 3:08 PM EDT Height 167.6 cm (5' 6 ) 10/18/2024 3:08 PM EDT Body Mass Index 38.25 10/18/2024 3:08 PM EDT documented in this encounter Progress Notes * Betzy Durham MD - 10/18/2024 4:00 PM EDT Subjective Patient ID: Dilcia Gallo is a 34 y.o. female who presents to walk in clinic for abdominal pain and bloating with diarrhea. Reports epigastric pain, bloating diarrhea for 3 days. No sick contacts. Hx gastric bypass. Review of Systems Constitutional: Negative for fatigue and fever. Objective Visit Vitals BP 116/71 (BP Location: Left arm, Patient Position: Sitting, BP Cuff Size: Adult) Pulse 68 Temp 98.6 ??F (37 ??C) (Temporal) Resp 20 Body mass index is 38.25 kg/m??. Physical Exam Constitutional: Appearance: Normal appearance. Cardiovascular: Rate and Rhythm: Normal rate and regular rhythm. Heart sounds: Normal heart sounds. Pulmonary: Effort: Pulmonary effort is normal. Breath sounds: Normal breath sounds. Abdominal: General: There is no distension. Palpations: There is no mass. Tenderness: There is abdominal tenderness in the epigastric area. There is no right CVA tenderness,left CVA tenderness, guarding or rebound. Hernia: No hernia is present. Comments: Mild epigastric tenderness. No rebound or guarding. Musculoskeletal: Cervical back: Normal range of motion and neck supple. Neurological: General: No focal deficit present. Mental Status: She is alert. Psychiatric: Behavior: Behavior normal. Assessment & Plan Gastritis without bleeding, unspecified chronicity, unspecified gastritis type -likely viral gastroenteritis -no evidence of dehydration on exam -no evidence of acute abdomen -supportive care with fluids -ER precautions discussed -increase omeprazole to bid for 7 days -she agrees with the plan Orders: omeprazole (PriLOSEC) [address] capsule; TAKE 2 CAPSULE BY MOUTH BEFORE BREAKFAST for one week, thenresume one tab po daily. Dysuria Not active. Orders: POCT Urinalysis Urine Culture Routine Future Appointments Date Time Provider Department Center 10/18/2024 4:00 PM [facility] 1 WALK-IN [facility] documented in this encounter Plan of Treatment Scheduled Orders Name Type Priority Associated Diagnoses Orde r Schedule Urine Culture Routine Microbiology Routine Dysuria Ordered: 10/18/2024 documented as of this encounter Procedures Procedure Name Priority Date/Time Associated Diagnosis Comments POCT URINALYSIS DIPSTICK Routine 10/18/2024 3:18 PM EDT Dysuria documented in this encounter Results * (ABNORMAL) POCT Urinalysis (10/18/2024 3:18 PM EDT) Color, UA Yellow Clarity, UA Clear Glucose, UA Negative Bilirubin, UA Trace Comment:small Ketones, UA Positive Spec Grav, UA 1.030 Blood, UA Positive(A) Negative, None Detected pH, UA 5.5 Protein, UA Trace Comment:30mg/dL Urobilinogen, UA 1.0 Leukocytes, UA Negative Negative, Rare, Trace Nitrite, UA Negative Negative, None Detected QC Media Lot # [id number] Lot# Expiration Date Urine 10/18/2024 3:18 PM EDT Betzy Durham MD POINT OF CARE TEST ENTER/E DIT ORDERABLES Final Result documented in this encounter Visit Diagnoses Diagnosis Gastritis without bleeding, unspecified chronicity, unspecified gastritis type- Primary Dysuria documented in this encounter Additional Health Concerns Assessment Noted Time PHQ-9 Depression Total Score: 20 023 10:55 AM EDT documented as of this encounter Care Teams Trouble Shooting Mechanic Relationship Specialty Start Date End Date Alisha Miller MD [address] [place] [address] PCP - General Family Medicine 03/27/22 Pedro Luis Montiel [employer] CutterCorporate Quality Assurance Manager 10/23/22 documented as of this encounter
--- OUTSIDE RECORDS SUMMARY | 2024-10-19 15:21 | XMS_ITS | Clinical Summary ---
Author Organization [employer] Address [address] [place] [address] [address] [place] [address] Care Team Providers Care Academy Education Director Name Role Phone Alisha Miller MD Primary Care Provider [phone] Allergies Active Allergy Reactions Criticality Noted Date Comments Penicillins Itching Low 03/27/2022 Medications Blood Pressure kitIndications: Elevated blood pressure reading 1 kit in the morning. 1 kit 03/27/19 23 Active albuterol 108 (90 Base) MCG/ACT inhalerIndicati ons:Influenza B,Moderate persistent asthma without complication Inhale 2 puffs every 4 (four) hours if needed for wheezing. 18 g 11 05/15/19 24 Active Acetaminophen Extra Strength 500 MG tabletIndicatio ns:Influenza B TAKE 1-2 TABLETS BY MOUTH EVERY 8 HOURS as needed for pain or fever 100 tablet 3 05/15/19 24 Active pramoxine-hydro cortisone, perianal, (Analpram HC) 2.5-1 % cream Insert into the rectum if needed in the morning and at bedtime for hemorrhoids. 30 g 01/25/20 24 Active senna-docusate sodium (Senokot-S) 8.6-50 MG tabletIndicatio ns:Constipation , unspecified constipation type Take 2 tablets by mouth Once per day. 60 tablet 11 07/02/19 25 Active simethicone (Mylicon,Gas-X) 180 MG capsule Take 1 capsule (180 mg) by mouth if needed in the morning and at bedtime for flatulence. 180 capsule 2 07/02/19 25 Active sertraline (Zoloft) 50 MG tablet Take 1 tablet (50 mg) by mouth Once per day. 90 tablet 1 07/02/19 25 025 Active hydrOXYzine HCl (Atarax) 25 MG tablet Take 1 tablet (25 mg) by mouth if needed in the morning, at noon, and at bedtime for anxiety. 90 tablet 1 07/02/19 25 Active zolpidem (Ambien) 5 MG tablet Take 1 tablet (5 mg) by mouth if needed at bedtime for sleep. 28 tablet 2 07/02/19 25 Active omeprazole (PriLOSEC) [address] capsuleIndicati ons:Gastritis without bleeding, unspecified chronicity, unspecified gastritis type TAKE 2 CAPSULE BY MOUTH BEFORE BREAKFAST for one week, then resume one tab po daily. 97 capsule 1 10/19/19 25 Active omeprazole (PriLOSEC) [address] capsule TAKE 1 CAPSULE BY MOUTH BEFORE BREAKFAST 90 capsule 1 07/02/19 25 025 Discontinued(Re order (will not trigger notification to Pharmacy)) Active Problems Problem Noted Date Diagnosed Date Intracranial hypertension 07/06/2024 Assessment & Plan (07/06/2024 10:03 AM EDT): Patient reports persistent headaches despite weight loss, which was expected to improve symptoms. Previously on acetazolamide therapy, but experiencing inadequate relief. The headaches may be related to diagnosed intracranial hypertension, given worsening SANCHEZ will proceed with referral and imaging. Plan: - Refer to neurology for further evaluation and management of intracranial pressure - Order MRI of the brain Easy bruising 07/06/2024 Assessment & Plan (07/06/2024 10:03 AM EDT): Patient reports easy bruising and numbness in legs. Recent hemoglobin level reported as 9 g/dL, indicating anemia. Iron deficiency is suspected, possibly due to malabsorption following gastric sleeve surgery. Vitamin deficiencies, particularly vitamin C, may also contribute to easy bruising. Plan: - Order comprehensive iron studies - Check vitamin C and B vitamin levels - Initiate iron supplementation if iron studies confirm deficiency - Recheck hemoglobin and iron studies in 6 weeks - If anemia persists, consider referral to hematology for potential parenteral iron therapy - Recommend multivitamin continuation Complaints of total body pain 07/06/2024 Assessment & Plan (07/06/2024 10:06 AM EDT): Patient complains of bilateral upper extremity pain and heat sensation, more pronounced on the right side, particularly in the trapezius area. Also reports hip and leg pain with associated numbness. Autoimmune testing in the past negative, ddx fibromyalgia, will need to address possible dx and treatment in next visit. Primary insomnia 07/01/2024 Assessment & Plan (07/06/2024 10:01 AM EDT): Patient reports anxiety symptoms and sleep disturbances, including difficulty falling asleep and frequent nighttime awakenings (2-3 times per night). Sleep duration is approximately 6-7 hours. Previous treatment with trazodone has been ineffective. The anxiety and sleep issues appear to be interrelated, forming a vicious cycle where anxiety disrupts sleep, and poor sleep exacerbates anxiety. Plan: - Restart sertraline for anxiety management - Prescribe hydroxyzine or as-needed anxiety relief - Trial of Ambien (zolpidem) 5 mg PO at bedtime for insomnia - Follow up in 6 weeks to assess efficacy of medication regimen Bilateral carpal tunnel syndrome 04/12/2024 Assessment & Plan (07/06/2024 10:04 AM EDT): Carpal Tunnel Syndrome Assessment: Patient reports ongoing symptoms of carpal tunnel syndrome, more severe in the right hand. Has received two corticosteroid injections without significant improvement. Surgical intervention is being considered. Plan: - Continue with scheduled surgical consultation in August for potential carpal tunnel release Constipation 01/25/2024 Assessment & Plan (07/06/2024 9:59 AM EDT): Will add senna to regimen. Assessment & Plan (01/25/2024 3:54 PM EST): [...] and hand surgeon Depression 03/27/2022 Anxiety 03/27/2022 Assessment & Plan (07/06/2024 10:00 AM EDT): Will start patient on sertraline, reports she has an upcoming appt with psych prescriber in 3 weeks. Followup in 4 weeks to monitor med side effects/efficacy. Morbid obesity 03/27/2022 Assessment & Plan (07/06/2024 9:59 AM EDT): Discussed calorie deficit, recommended reduction of 20-30% of maintenance calories; distillery miller helper referral offered. Recommended to decrease soda and sugary beverage consumption. Recommended at least 20 g per meal of protein to assist with satiety. Recommended at least 150 min/week of moderate intensity exercise. Sp gastric sleeve Assessment & Plan (04/16/2023 10:23 AM EST): [...] recommended reduction of 20-30% of maintenance calories; distillery miller helper referral offered. Recommended to decrease soda and [...] implementation of diet modifications. Will refer to distillery miller helper. At this point will increase phentermine to [...] Encounters Date Type Department Care Team Description 10/18/2024 4:00 PM EDT Office Visit [facility] [address] [place] [phone] Betzy Durham MD Gastritis without bleeding, unspecified chronicity, unspecified gastritis type (Primary Dx); Dysuria 10/18/2024 Travel 09/06/2024 Telephone [facility] [address] [place] [address] Alisha Miller MD FYI from Last 3 Months Immunizations Immunization Administration Dates Next Due Influenza injectable quadrivalent [...] Mass Index 38.25 10/18/2024 3:08 PM EDT Plan of Treatment Health Maintenance Due Date Last Done Comments Disability Screening 1990 Family Planning (PISQ) 01/05/2004 HPV Vaccines (1 - 3-dose series) 01/05/2004 Hepatitis B Vaccines (1 of 3 - 19+ 3-dose series) 01/05/2008 Depression Monitoring 04/20/2023 10/20/2022 , 10/20/2022 COVID-19 Vaccine (1 - 2023-2 5 season) 2024 Influenza Vaccine (#1) 2024 , 10/20/2022 Alcohol/Substance Use Screening 07/01/2025 07/01/2024 SDOH Screening 07/01/2025 07/01/2024 Tobacco Screening 07/01/2025 07/01/2024 Cervical Cancer Screening 11/06/2025 HPV/Cotest 11/06/2025 Pap Smear 11/06/2025 11/06/2022 Lipid Panel 04/07/2027 04/07/2022 DTaP/Tdap/Td Vaccines (2 - T d or Tdap) 10/20/2032 10/20/2022 Zoster Vaccines (1 of 2) 2039 RSV Patients and Patients Aged 60 years or older (1 - 1-dose 75+ series) 01/05/2064 HIV Screening Completed 05/29/2022 Hepatitis C Screening Completed 05/29/2022 Pneumococcal Vaccine: Pediatrics (0 to 5 Years) and At-Risk Patients (6 to 49) Years Completed 10/20/2022 HIB Vaccines Aged Out No longer eligi ble based on patient's age to complete this topic Hepatitis A Vaccines Aged Out No long er eligible based on patient's age to complete this topic IPV Vaccines Aged Out No longer eligi ble based on patient's age to complete this topic Meningococcal B Vaccine Aged Out No l onger eligible based on patient's age to complete [...] DIPSTICK Routine 10/18/2024 3:18 PM EDT Dysuria PAP SMEAR Routine 11/06/2022 3:20 PM EDT [...] Recently Relevant to Health Maintenance Results * (ABNORMAL) POCT Urinalysis (10/18/2024 3:18 PM EDT) Color, UA Yellow Clarity, UA Clear Glucose, UA Negative Bilirubin, UA Trace Comment:small Ketones, UA Positive Spec Grav, UA 1.030 Blood, UA Positive(A) Negative, None Detected pH, UA 5.5 Protein, UA Trace Comment:30mg/dL Urobilinogen, UA 1.0 Leukocytes, UA Negative Negative, Rare, Trace Nitrite, UA Negative Negative, None Detected QC Media Lot # [id number] Lot# Expiration Date [id number] Urine 10/18/2024 3:18 PM EDT Betzy Durham MD POINT OF CARE TEST ENTER/E DIT ORDERABLES Final Result * Pap Smear (11/06/2022 3:20 PM EDT) Swab 11/06/2022 3:20 PM EDT 11/07/2022 10:10 AM EDT Narrative [facility] - 11/14/2022 11:16 AM EDT ----- ------- Name: Dilcia Sutton Age/Sex: 32/F : 1990 Unit#: [id number] Attend Dr: Alisha Miller MD Re11/06/22 Status: DEP REF Location: HO.CHCLNP Disch: ----- ------- SPEC : [id number] RECD: 11/07/22-1010 STATUS: KARINE CARLSON NUM: [id number] SHEFALI: 11/06/22-[address]: Alisha Miller MD ENTERED: 11/07/22-1052 SP TYPE: Pap Smr OTHR DR: ORDERED: Pap Smear Interpretation Satisfactory for evaluation. Negative for intraepithelial lesion or malignancy. Clinical Information LMP: Unknown date Previous PAP test: Unknown date/findings Other history: Hysterectomy, screening for malignant neoplasm of vagina after partial hysterectomy Material Received ThinPrep-Vaginal ----- ------- Signed (signature on file) SHABBIR Chaudhry ([facility]) 11/14/22 1116 ----- ------- END OF REPORT Alisha Miller MD LAB CYTOLOGY ORDERABLES Final Result Performing Organization Address City/[facility] Co de Phone Number [facility] [address] [place] [phone] * Hepatitis C Antibody with Reflex to HCV, RNA, Quantitative, Real-Time PCR (05/29/2022 11:23 AM EDT) [facility] Hepatitis C Antibody NON-REACT SIMÓN NON-REACT SIMÓN [facility] Index 0.19 <1.00 [facility] Comment: HCV antibody was non-reactive. There is no laboratory evidence of HCV infection. In most cases, no further action is required. However, if recent HCV exposure is suspected, a test for HCV RNA (test code 91473) is suggested. For additional information please refer to http://education.shopatplaces/faq/BZH70n9 (This link is being provided for informational/ educational purposes only.) Blood Venous blood specimen / Unknown 05/29/2022 11:23 AM EDT 05/29/2022 11:[address] [facility] - 05/29/2022 8:02 PM EDT AN UPDATE OR CORRECTION HAS BEEN MADE TO NAME Alisha Miller MD LAB BLOOD ORDERABLES Final Re sult Performing Organization Address City/[facility] Co de Phone Number [facility] [address], [place] [address] [facility] [address] [place] [address] * HIV-1/2 Antigen and Antibodies, Fourth Generation, with Reflexes (05/29/2022 11:23 AM EDT) HIV Antigen/Antibody, 4th Generation NON-REAC TIVE NON-REAC TIVE [facility] Comment: HIV-1 antigen and HIV-1/HIV-2 antibodies were not detected. There is no laboratory evidence of HIV infection. PLEASE NOTE: This information has been disclosed to you from records whose confidentiality may be protected by state law. If your state requires such protection, then the state law prohibits you from making any further disclosure of the information without the specific written consent of the person to whom it pertains, or as otherwise permitted by law. A general authorization for the release of medical or other information is NOT sufficient for this purpose. For additional information please refer to http://education.shopatplaces/faq/JVR138 (This link is being provided for informational/ educational purposes only.) The performance of this assay has not been clinically validated in patients less than 2 years old. Blood Venous blood specimen / Unknown 05/29/2022 11:23 AM EDT 05/29/2022 11:[address] [facility] - 05/29/2022 8:02 PM EDT AN UPDATE OR CORRECTION HAS BEEN MADE TO NAME us Alisha Miller MD LAB BLOOD ORDERABLES Final Re sult [facility] [address], [place] [address] [facility] [address] [place] [address] * Lipid Panel, Standard (04/07/2022 11:14 AM EST) [facility] Cholesterol, Total 158 <200 mg/dL [facility] HDL Cholesterol 56 > OR = 50 mg/dL [facility] Triglycerides 98 <150 mg/dL [facility] LDL Cholesterol 83 mg/dL (calc) [facility] Comment: Reference range: <100 Desirable range <100 mg/dL for primary prevention; <70 mg/dL for patients with CHD or diabetic patients with > or = 2 CHD risk factors. LDL-C is now calculated using the Rich-Cannon calculation, which is a validated novel method providing better accuracy than the Friedewald equation in the estimation of LDL-C. Rich SS et al. ENOCH. 2013;310(19): 0680-5650 (http://education.Eduora/faq/FUT134) Chol/HDLC Ratio 2.8 <5.0 (calc) [facility] Non-HDL Cholesterol 102 <130 mg/dL (calc) [facility] Comment: For patients with diabetes plus 1 major ASCVD risk factor, treating to a non-HDL-C goal of <100 mg/dL (LDL-C of <70 mg/dL) is considered a therapeutic option. 04/07/2022 11:1 4 AM EST 04/07/2022 11:16 AM EST Narrative [facility] - 04/11/2022 12:46 AM EST FASTING:YES AN UPDATE OR CORRECTION HAS BEEN MADE TO NAME FASTING: YES us Alisha Miller MD LAB BLOOD ORDERABLES Final Re sult [facility] [address], [place] [address] [facility] [address] [facility], ([address]) [place] [address] from Last 3 Months or Most Recently Relevant to Health Maintenance [place] [place] [address] C3 Care Teams Academy Education Director Relationship Specialty Start Date End Date Alisha Miller MD [address] [place] [phone] PCP - General Family Medicine 03/27/22 Pedro Luis Montiel Consulting Group AnalystBasket Hand Weaver 10/23/22
--- OUTSIDE RECORDS SUMMARY | 2024-10-19 15:21 | XMS_ITS | Encounter Summary ---
Author Organization [employer] Address [address] [facility] 7t [place] [address] Care Team Providers Care Slag Expander Name Role Phone Alisha Miller MD Primary Care Provider [phone] Reason for Visit * Reason Onset Date Comments FYI 09/06/2024 Encounter Details Date Type Department Care Team ([facility] st Contact Info) Description 09/06/2024 Telephone [facility] [address] [place] [address] Alisha Miller MD [address] [place] [address] FYI Social History Tobacco Use Types Packs/Day Years [...] encounter Miscellaneous Notes * Telephone Encounter - Sandee Blue - 09/06/2024 2:35 PM EDT Tc from [facility] stating they will be able to see the patient for the headache, but not for intracranial hypotension. [facility] mentioned she has called the patient a couple of times and left a voicemail. Contact [facility] at [phone] documented in this encounter Plan of Treatment Not on file documented as of this encounter Visit Diagnoses Not on filedocumented in this encounter Additional Health Concerns Assessment Noted Time PHQ-9 Depression Total Score: 20 023 10:55 AM EDT documented as of this encounter Care Teams Slag Expander Relationship Specialty Start Date End Date Alisha Miller MD [address] [place] [address] PCP - General Family Medicine 03/27/22 Pedro Luis Montiel Patent Legal AssistantLiquor Store Manager 10/23/22 documented as of this encounter
--- OUTSIDE RECORDS SUMMARY | 2024-10-19 15:21 | XMS_ITS | Encounter Summary ---
Author Organization [employer] Address [address] [facility] 7t [place] [address] Care Team Providers Care Applications Consultant Name Role Phone Alisha Miller MD Primary Care Provider [phone] Encounter Details Date Type Department Care Team (Latest Contact Info) Description 10/18/2024 Travel Social History Tobacco Use Types Packs/Day [...] documented as of this encounter Care Teams Applications Consultant Relationship Specialty Start Date End Date Alisha Miller MD [address] [place] [address] PCP - General Family Medicine 03/27/22 Pedro Luis Montiel Recreation TeacherRefinisher 10/23/22 documented as of this encounter
--- OUTSIDE RECORDS SUMMARY | 2024-10-19 15:22 | XMS_ITS | Clinical Summary ---
Author Organization [facility] Address [address] [place] [address] Care Team Providers Care Fiberglass Product Tester Name Role Phone Unavailable Primary Care Provider Unavailabl e Source Comments PLEASE NOTE, if this patient is a minor, it may be UNLAWFUL to discuss sensitive information that is contained in these records (such as FAMILY PLANNING, MENTAL HEALTH or SUBSTANCE ABUSE) with the minor patient's parent or other person without the patient's specific authorization.[facility] Immunizations Immunization Administration Dates Next Due Moderna COVID-19 Vaccine, [...] Health Maintenance Due Date Last Done Comments Anxiety Screening 1989 Diabetes Screening 1989 HPV Screening 1989 Hepatitis C Screening 1989 Pap + HPV 1989 Tobacco Screening 1989 HIV Screening 01/05/2004 Relationship Safety Screening/Counseling 01/05/2004 Hypertension Screening (#1) 2007 Imm-DTaP/Tdap/Td (1 - Tdap) 01/05/2008 Imm-Hepatitis B (1 of 3 - 19 + 3-dose series) 01/05/2008 Cervical Cancer Screening 2010 Pap Smear 2010 Alcohol and Drug Screen 02/10/2024 Depression Annual Screen 02/10/2024 [id number] ( season) 2024 021, 06/04/2020 Imm-Influenza (#1) 2024 Cervical Ablation/Cold-Knife Conization Discontinued Cervical Cryotherapy Discontinued Colposcopy Discontinued Endometrial Biopsy Discontinued Excision/Leep Discontinued HPV Genotyping Discontinued Vaginal Pap Discontinued Vulvoscopy Discontinued Insurance [employer] Member Subscriber Plan / Payer (Ef fective 2019-Present) Name:Dilcia Vergara Relation to Subscriber:Self Name:Dilcia Vergara Payer ID:[id number] Group ID:Not on file Type:Medicaid Address: [facility] [address] [place] [address]
--- OUTSIDE RECORDS SUMMARY | 2024-10-19 15:22 | XMS_ITS | Clinical Summary ---
Author Organization [facility] Address [address] [place] [address] Care Team Providers Care Clinical Operations Manager Name Role Phone Alisha Miller MD Primary Care Provider [phone] Allergies Active Allergy Reactions Criticality Noted Date Comments Penicillin G Itching,Swelling 02/19/2018 Medications sertraline HCl (SERTRALINE ORAL) Take by mouth. Activ e trazodone HCl (TRAZODONE ORAL) Take by mouth. Activ e wheat dextrin (Benefiber Clear SF, dextrin,) 3 gram/3.5 gram powder in packet Take 4 g by mouth daily. 4 Active nystatin (MYCOSTATIN) 100,000 unit/gram powderIndicatio ns:Symptomatic abdominal panniculus Apply topically 2 (two) times a day. 15 g 5 05/11/19 26 Active Active Problems Problem Noted Date Diagnosed Date Bilateral carpal tunnel syndrome 04/12/2024 Class 3 severe obesity due t o excess calories with body mass index (BMI) of 50.0 to 59.9 in adult (CMS/[facility] V24, [facility] V28) 02/08/2024 Encounters Date Type Department Care Team Description 09/06/[address] [place] [address] Zuleika Figueroa MD from Last 3 Months Surgical History Surgery Date Site/Laterality Comments CHOLECYSTECTOMY PROCEDURE: MO CHOLECYSTECTOMY APPENDECTOMY PROCEDURE: HISTORICAL APPENDECTOMY TUBAL LIGATION [...] Sign Reading Time Taken Comments Blood Pressure 113/71 05/10/2024 1:42 PM EDT Pulse 71 05/10/2024 1:42 PM EDT Temperature 36.6 C (97.8 F) 05/10/2024 1:42 PM EDT Respiratory Rate - - Oxygen Saturation - - Inhaled Oxygen Concentration - - Weight 113 kg (249 lb) 07/14/2024 10:43 AM EDT Height 167.6 cm (5' 6 ) 07/14/2024 10:43 AM EDT Body Mass Index 40.19 07/14/2024 10:43 AM EDT Plan of Treatment Upcoming Encounters Date Type Department Care Team (Late st Contact Info) Description 11/10/2024 2:00 PM EDT Office Visit B[facility] [place] [address] [facility] [address] [place] [address] Georgia Fairchild MD [address] [place] [phone] 11/14/2024 10:30 AM EDT Office Visit Orthopedic Surgery - [place] [address] [facility] [address] [place] [address] Sana King PA [address] [facility] [address] [place] [phone] Health Maintenance Due Date Last Done Comments Hepatitis B Vaccines (1 of 3 - 19+ 3-dose series) 01/05/2008 Social Influencers of Health Screening 01/11/2022 Depression Screening 02/10/2024 COVID-19 Vaccine (3 season) 2024 07/02/2020, 06/04/2020 Influenza Vaccine (#1) 2024 , 10/20/2022, 11/22/2019, Additional history exists Hypertension/CHF/CAD Annual BMP Blood Test 03/22/2025 03/22/2024, 10/29/2022 Cervical Cancer Screening: Pap Smear 11/06/2025 11/06/2022 Cholesterol Screening (Lipid Panel) 10/30/2027 10/29/2022, 04/07/2022 DTaP,Tdap,and Td Vaccines (2 - Td or Tdap) 10/20/2032 10/20/2022 HIV Screening Completed 05/29/2022 Hepatitis C Screening Completed 05/29/2022 Pneumococcal Vaccine: Pediatrics (0 to 5 Years) and At-Risk Patients (6 to 49 Years) Completed 10/20/2022 HIB Vaccines Aged Out No [...] to complete this topic RSV Immunization Patients Under 20 months Aged Out No longer eligible based on patient's age to complete this topic Varicella Vaccines Aged Out No longer eligible based on patient's age to complete this topic Procedures Procedure Name Priority Date/Time Associated Diagnosis Comments ANNUAL BMP BLOOD TEST Routine 10/29/2022 LIPID PANEL Routine 10/29/2022 from Last 3 Months or Most Recently Relevant to Health Maintenance Results * Annual BMP Blood Test (10/29/2022) Annual BMP Blood Test Abstracted Historical Provider HEALTH MAINTENANCE Final Result * Lipid panel (10/29/2022) LDL/HDL Ratio 3 0 - 4 Triglycerides 96 0 - 150 mg/dL Cholesterol 148 0 - 200 mg/dL HDL 47 >=40 mg/dL LDL Cholesterol 82 0 - 100 mg/dL Blood Venous blood specimen / Unknown Historical Provider LAB BLOOD ORDERABLES Anne l Result from Last 3 Months or Most Recently Relevant to Health Maintenance Insurance MEDICAID - [place] Care Teams Clinical Operations Manager Relationship Specialty Start Date End Date Alisha Miller MD [address] [place] [address] PCP - General Family Medicine 05/03/24
== END 2024-10-18 12:14 | disposition home or self-care (01) ==
LOC: HO.HHCLNP 12:13
PROVIDERS: Visit Provider Family Medicine
DX: R30.0 Dysuria (principal)
CPT/HCPCS: 87086

== ENCOUNTER 2025-01-25 08:55 | Outpatient (REF) | payer MEDICAID, SELFPAY ==
--- NOTE | 2025-01-25 08:59 | EMG_ITS ---
Chief complaint: Bilateral hand numbness and pain Reason for referral: Evaluate for Carpal Tunnel Syndrome, ulnar neuropathy radiculopathy Referred by: Sana QUINTERO Procedure done: Bilateral upper extremities NCS/EMG Precautions and/or limitations: None The limb temperature was monitored continuously and remained between 32-36 degrees C during the performance of the NCS. Nerve Conduction Studies Anti Sensory Summary Table ?Stim Site NR Onset (ms) Norm Onset (ms) Peak (ms) Norm Peak (ms) O-P Amp (?V) Norm O-P Amp Site1 Site2 Delta-0 (ms) Dist (cm) Ed (m/s) Norm Ed (m/s) Left Median Anti Sensory (2nd Digit) Wrist ? 3.1 3.7 <3.6 15.5 >10 Wrist 2nd Digit 3.1 14.0 45 Right Median Anti Sensory (2nd Digit) Wrist ? 2.7 3.9 <3.6 25.0 >10 Wrist 2nd Digit 2.7 14.0 52 Left Radial Anti Sensory (Thumb) Forearm ? 1.9 2.4 <3.1 14.9 Forearm Thumb 1.9 0.0 Left Ulnar Anti Sensory (5th Digit) Wrist ? 2.7 3.2 <3.7 19.0 >15.0 Wrist 5th Digit 2.7 14.0 52 Right Ulnar Anti Sensory (5th Digit) Wrist ? 0.9 3.1 <3.7 18.0 >15.0 Wrist 5th Digit 0.9 14.0 156 Motor Summary Table ?Stim Site NR Onset (ms) Norm Onset (ms) O-P Amp (mV) Norm O-P Amp iAmp (mV) Amp (1st) (%) Site1 Site2 Delta-0 (ms) Dist (cm) Ed (m/s) Norm Ed (m/s) Left Median Motor (Abd Poll Brev) Wrist ? 4.2 <3.9 12.3 >4.5 15.5 100.0 Elbow Wrist 3.8 20.0 53 >45 Elbow ? 8.0 12.0 14.8 97.6 Right Median Motor (Abd Poll Brev) Wrist ? 4.4 <3.9 11.6 >4.5 13.3 100.0 Elbow Wrist 3.8 23.0 61 >45 Elbow ? 8.2 11.5 13.3 99.1 Left Ulnar Motor (Abd Dig Minimi) Wrist ? 2.7 <3.0 7.2 >5 8.0 100.0 B Elbow Wrist 3.2 19.0 59 >45 B Elbow ? 5.9 5.8 6.5 80.6 A Elbow B Elbow 1.1 10.0 91 >45 A Elbow ? 7.0 6.9 8.1 95.8 Right Ulnar Motor (Abd Dig Minimi) Wrist ? 2.7 <3.0 9.9 >5 12.1 100.0 B Elbow Wrist 3.5 20.0 57 >45 B Elbow ? 6.2 8.4 10.4 84.8 A Elbow B Elbow 1.1 10.0 91 >45 A Elbow ? 7.3 9.3 11.7 93.9 EMG ?Side Muscle Nerve Root Ins Act Fibs Psw Amp Dur Poly Recrt Int Pat Comment Right 1stDorInt Ulnar C8-T1 Nml Nml Nml Nml Nml 0 Nml Complete Right FlexCarRad Median C6-7 Nml Nml Nml Nml Nml 0 Nml Complete Right Biceps Musculocut C5-6 Nml Nml Nml Nml Nml 0 Nml Complete Right Triceps Radial C6-7-8 Nml Nml Nml Nml Nml 0 Nml Complete Right Deltoid Axillary C5-6 Nml Nml Nml Nml Nml 0 Nml Complete Left 1stDorInt Ulnar C8-T1 Nml Nml Nml Nml Nml 0 Nml Complete Left FlexCarRad Median C6-7 Nml Nml Nml Nml Nml 0 Nml Complete Left Biceps Musculocut C5-6 Nml Nml Nml Nml Nml 0 Nml Complete Left Triceps Radial C6-7-8 Nml Nml Nml Nml Nml 0 Nml Complete Left Deltoid Axillary C5-6 Nml Nml Nml Nml Nml 0 Nml Complete FINDINGS: Bilateral median motor nerves showed prolonged distal latency, normal amplitude and normal conduction velocity. Bilateral median sensory nerves showed prolonged peak latency. All other nerves tested were within normal. Concentric needle EMG was performed in selected muscles of the bilateral upper extremities. Study did not reveal signs of electric abnormalities as shown in the table above. IMPRESSION: 1. This is an abnormal study. 2. There is electrodiagnostic evidence for bilateral moderate-severe median neuropathy at the wrist, consistent with carpal tunnel syndrome. 3. There is no electrodiagnostic evidence for ulnar neuropathy, brachial plexopathy, or cervical radiculopathy. Thank you for your kind referral. Josselyn Conley MD, [place]TON Board Certified, [place] [employer] and [employer] (ABPMR) Board Certified, [place] Board [employer] Electrodiagn[employer] (ABEM) CODIN [phone] x 2 extremities MTDD
--- OUTSIDE RECORDS SUMMARY | 2025-01-25 09:35 | XMS_ITS | Clinical Summary ---
Author Organization Patient Business Ser [facility] Address [address] [place] [address] Care Team Providers Care Industrial Electrician Name Role Phone Alisha Miller MD Primary Care Provider [phone] Allergies Active Allergy Reactions Criticality Noted Date Comments Penicillin G Itching,Swelling 02/19/2018 Medications sertraline HCl (SERTRALINE ORAL) Take by mouth. Active trazodone HCl (TRAZODONE ORAL) Take by mouth. Active wheat dextrin (Benefiber Clear SF, dextrin,) 3 gram/3.5 gram powder in packet Take 4 g by mouth daily. 4 Active acetaminophen (TYLENOL) 500 mg capsule Take 2 capsules (1,000 mg total) by mouth every 6 (six) hours if needed for mild pain. 5 06/23/19 26 Active nystatin (MYCOSTATIN) 100,000 unit/gram powderIndicatio ns:Symptomatic abdominal panniculus Apply topically 2 (two) times a day. 15 g 3 5 12/28/19 26 Active nystatin (MYCOSTATIN) 100,000 unit/gram powderIndicatio ns:Symptomatic abdominal panniculus Apply topically 2 (two) times a day. 15 g 5 12/28/19 25 Discontinu ed(Reorder ) Active Problems Problem Noted Date Diagnosed Date Bilateral carpal tunnel syndrome 04/12/2024 Class 3 severe obesity due t o excess calories with body mass index (BMI) of 50.0 to 59.9 in adult 02/08/2024 Encounters Date Type Department Care Team Description 12/27/2024 9:00 AM EST Office Visit Bariatric Surgery - [place] [address] [facility] [address] [place] [address] Georgia Fairchild MD Symptomatic abdominal panniculus (Primary Dx); Postgastrectomy malabsorption; Class 2 obesity due to excess calories with body mass index (BMI) of 38.0 to 38.9 in adult, unspecified whether serious comorbidity present 11/14/2024 10:30 AM EDT Office Visit Orthopedic Surgery - [place] [address] [facility] [address] [place] [address] Sana King PA Bilateral carpal tunnel syndrome (Primary Dx); Pain of right upper arm from Last 3 Months Surgical History Surgery Date Site/Laterality Comments CHOLECYSTECTOMY PROCEDURE: MD CHOLECYSTECTOMY APPENDECTOMY PROCEDURE: HISTORICAL APPENDECTOMY TUBAL LIGATION [...] Date Smoking Tobacco: Never Smokeless Tobacco: Never Tobacco Cessation:Counseling Given: Not Answered Alcohol Use Standard Drinks/Week Comments Yes 0 (1 standard drink = 0.6 oz pur e alcohol) Comments No Sex and Gender Information Value Date Recorded Sex Assigned at Female 05/15/2023 7:04 PM EDT Legal Sex Female 6:51 PM EST Gender Identity Female 05/15/2023 7:04 PM EDT Sexual Orientation Straight 05/15/2023 7: 04 PM EDT Last Filed Vital Signs Vital Sign Reading Time Taken Comments Blood Pressure 120/73 12/27/2024 9:34 AM EST Pulse 77 12/27/2024 9:34 AM EST Temperature 36.6 C (97.8 F) 12/27/2024 9:34 AM EST Respiratory Rate 16 11/14/2024 10:45 AM EDT Oxygen Saturation - - Inhaled Oxygen Concentration - - Weight 108 kg (237 lb) 12/27/2024 9:34 AM EST Height 167.6 cm (5' 6 ) 12/27/2024 9:34 AM EST Body Mass Index 38.25 12/27/2024 9:34 AM EST Plan of Treatment Upcoming Encounters Date Type Department Care Team (Late st Contact Info) Description 07/13/2025 10:15 AM EDT Office Visit Bariatric Surgery - [place] [address] [facility] [address] [place] [phone] Georgia Fairchild MD [address] [place] [phone] Health Maintenance Due Date Last Done Comments Hepatitis B Vaccines (1 of 3 - 19+ 3-dose series) 01/05/2008 HPV Vaccines (1 - 3-dose SCDM series) 01/05/2016 Social Influencers of Health Screening 01/11/2022 Depression Screening 02/10/2024 COVID-19 Vaccine ( - 2024- season) 2024 07/02/2020, 06/04/2020 Influenza Vaccine (#1) 2024 , 10/20/2022, 11/22/2019, Additional history exists Hypertension/CHF/CAD Annual BMP Blood Test 03/22/2025 03/22/2024, 10/29/2022 Cervical Cancer Screening: Pap Smear 11/06/2025 11/06/2022 Cholesterol Screening (Lipid Panel) 10/30/2027 10/29/2022, 04/07/2022 DTaP,Tdap,and Td Vaccines (2 - Td or Tdap) 10/20/2032 10/20/2022 RSV Immunization Adult Patients (1 - 1-dose 75+ series) 01/05/2064 HIV [...] Procedure Name Priority Date/Time Associated Diagnosis Comments MD INJECTION CARPAL TUNNEL THERAPEUTIC Routine 11/14/2024 10:30 AM EDT Bilateral carpal tunnel syndrome ANNUAL BMP BLOOD TEST Routine 10/29/2022 LIPID PANEL Routine 10/29/2022 from Last 3 Months or Most Recently Relevant to Health Maintenance Results * MD INJECTION CARPAL TUNNEL THERAPEUTIC (11/14/2024 10:30 AM EDT) Narrative Sana King PA - 11/14/2024 10:30 AM EDT INGRID Zee 11/14/2024 12:41 PM Hand / UE Inj/Asp: R carpal tunnel for carpal tunnel syndrome Indications: pain Details: 25 G needle, volar approach Medications: 0.5 mL lidocaine 1 %; 40 mg triamcinolone acetonide 40 mg/mL Informed Consent: Laterality: Right Relevant images/test results available and reviewed: yes Health status cleared: Yes Procedure/treatment, purpose, treatment alternatives, risks/potential complications and benefits explained: yes Risk/complications/benefits details: Risks of infection, thinning of the skin and temporary skin discoloration discussed. Discussed risks of temporary increased pain after injection and swelling and mild redness at injection site for couple days. Explained occasionally cortisone injection can cause facial flushing temporarily. Benefits pain management. For postop injection pain ice, Tylenol and/or NSAIDs if patient can take Patient questions answered: yes Patient agrees, verbalizes understanding, and wants to proceed: yes Consent given by: Patient Informed consent discussion completed by Physician/JUAN with patient: Verbal Pre-procedure timeout performed: yes Sana QUINTERO IN CLINIC/BEDSIDE ORDERABLES Final Result * Annual BMP Blood Test (10/29/2022) Annual [...] Maintenance Insurance MEDICAID - [place] Care Teams Industrial Electrician Relationship Specialty Start Date End Date Alisha Miller MD [address] [place] [address] PCP - General Family Medicine 05/03/24
== END 2025-01-25 08:56 | disposition home or self-care (01) ==
LOC: HO.NEURO 08:55
PROVIDERS: PCP Family Medicine; Visit Provider Physician Assistant
DX: G56.03 Carpal tunnel syndrome, bilateral upper limbs (principal)
CPT/HCPCS: 95886; 95911

== ENCOUNTER → 2025-01-25 08:59 | Outpatient (BNV) | payer MEDICAID, SELFPAY | PROVIDERS: PCP Family Medicine; Visit Provider Physical Medicine & Rehabilitation | DX: G56.03 Carpal tunnel syndrome, bilateral upper limbs (principal) | CPT/HCPCS: 95886; 95911 ==